=== PATIENT | female | born 1945 | race Caucasian/White ===

== ENCOUNTER → 2016-08-06 | Outpatient (CLI) | payer OTHER ==
[~2016-08-06] MED LIST: AMLO-110 PO; LEVO50TA PO
--- NOTE | 2016-08-06 16:41 | MAMMOGRAPHY REPORT ---
BILATERAL DIGITAL SCREENING MAMMOGRAM WITH CAD: 08/06/2016 CLINICAL HISTORY: Routine screening. Patient has no complaints. TECHNIQUE: Bilateral CC and MLO views were obtained. Current study was also evaluated with a Comput er Aided Detection (CAD) system. COMPARISON: Comparison is made to exams dated: 08/04/2015 mammogram, 08/02/2014 mammogram, 07/30/2013 mammogram, 07/29/2012 mammogram, 07/31/2010 mammogram - [facility], and 03/11/2008. BREAST COMPOSITION: The tissue of both breasts is heterogeneously dense, which may obscure small ma sses. FINDINGS: There are mild vascular calcifications in the breasts. The parenchymal pattern is unchang ed. No developing mass, architectural distortion or cluster of suspicious microcalcifications is see n in either breast. IMPRESSION: ACR BI-RADS CATEGORY 2: BENIGN There is no mammographic evidence of malignancy. A 1 year screening mammogram is recommended. The p atient will receive written notification of the results. Approximately 10% of breast cancers are not detected with mammography. A negative mammographic repor t should not delay biopsy if a clinically suggestive mass is present. Adelaida Monet M.D. ay/:08/06/2016 15:43:50 Ict Sales Assistant: Marybeth LAMBERT(Shukri)(Margarito)(BD), [facility] letter sent: Normal 1/2 BI-RADS Code: ACR BI-RADS Category 2: Benign
== END | disposition home or self-care (01) ==
LOC: C.MAMM 08:42
PROVIDERS: ATTEND Internal Medicine
DX: Z12.31 Encounter for screening mammogram for malignant neoplasm of breast (principal)

== ENCOUNTER → 2017-05-02 | Day surgery (SDC) | payer OTHER ==
[2017-04-18 08:06] VITALS: Ht 160 cm; Wt 65.9 kg
[~2017-05-02] VITALS: Ht 160 cm; Wt 65.9 kg
[~2017-05-02] MED LIST changes: +LIDOCAINE HCL 2% 2 ML VIAL (20MG/ML) ONE; +MULT-190 PO; +OMEG10007 PO; +POLYSOL4 OPB; +PROPOFOL IV EMULSION 10 MG/ML 20 ML VIAL IV ONE; +SODIUM CHLORIDE 0.9% 500ML 500 ML IV ONE
--- NOTE | 2017-05-02 08:38 | Endo History and Physical ---
History & Physical Date of Service: May 02, 2017. Chief Complaint: Family history of colon cancer (Brother) Referring Physician: Dr. Rico Fine History of Present Illness 71 yo CF who presents for colonoscopy secondary to family history of colon cancer (Brother). Past Surgical History Hx Cardiac Surgery: No Hx Internal Defibrillator: No Hx Pacemaker: No Hx Abdominal Surgery: Yes (PARTIAL HYSTER) Hx Post-Op Nausea and Vomiting: No Hx Cancer Surgery: No Hx Thoracic Surgery: No Hx Orthopedic: No Hx Urinary Tract Surgery: No Family History Colon CA Social History Smoking Status: Former Smoker Hx Substance Use: No Hx Alcohol Use: No Allergies Coded Allergies: Alendronate (Verified Allergy, Unknown, TACHYCARDIA, 04/18/17) Current Medications Reported Home Medications Medications Dose Route/Sig Max Daily Dose Days Date Category [place]-3 (Fish Oil) 1 Ea Cap 1 Cap PO QAM 04/18/17 Reported Systane (Polyethylene Glycol-Propylene) 1 Laura Laura 1 Drops OPB QID PRN 04/18/17 Reported Ocuvite Preservision (Multivitamins/Minerals) 1 Tab Tab 1 Tab PO BID 04/18/17 Reported Synthroid (Levothyroxine Sodium) 50 Mcg Tab 50 Mcg PO QAM 12/07/14 Reported Norvasc (Amlodipine Besylate) 5 Mg Tab 5 Mg PO NOON 12/07/14 Reported Vital Signs Weight (Kilograms): 65.91 Height (Feet): 5 Height (Inches): 3 Date Time Temp Pulse Resp B/P (MAP) Pulse Ox O2 Delivery O2 Flow Rate FiO2 05/02/17 08:15 36.7 90 18 149/81 (103) 99 Room Air Physical Exam General Appearance: WD/WN, no apparent distress Respiratory/Chest: Auscultation: breath sounds normal Cardiovascular: Heart Auscultation: RRR Abdomen: Bowel Sounds: normal Inspection & Palpation: soft, non-distended, no tenderness, guarding & rebound Assessment and Plan Assessment: 71 yo CF who presents for colonoscopy secondary to family history of colon cancer (Brother). Plan: Proceed with colonoscopy.
--- NOTE | 2017-05-02 09:19 | Discharge Instructions ---
Endoscopy Patient Instructions Date / Procedure(s) Performed May 02, 2017. Colonoscopy Allergy Information Coded Allergies: Alendronate (Verified Allergy, Unknown, TACHYCARDIA, 04/18/17) Discharge Date / Findings May 02, 2017. Rectal polyp Internal hemorrhoids Medication Instructions OK to resume all medications today as prescribed Reported Home Medications Medications Dose Route/Sig Max Daily Dose Days Date Category [place]-3 (Fish Oil) 1 Ea Cap 1 Cap PO QAM 04/18/17 Reported Systane (Polyethylene Glycol-Propylene) 1 Laura Laura 1 Drops OPB QID PRN 04/18/17 Reported Ocuvite Preservision (Multivitamins/Minerals) 1 Tab Tab 1 Tab PO BID 04/18/17 Reported Synthroid (Levothyroxine Sodium) 50 Mcg Tab 50 Mcg PO QAM 12/07/14 Reported Norvasc (Amlodipine Besylate) 5 Mg Tab 5 Mg PO NOON 12/07/14 Reported Provider Instructions Activity Restrictions - No exercising or heavy lifting for 24 hours. - Do not drink alcohol the day of the procedure. - Do not drive a car or operate machinery until the day after the procedure. - Do not make any important decisions or sign important papers in 24 hours after the procedure. Following Day: - Return to full activity which may include returning to work/school. Diet Start your diet with liquids and light foods (jello, soup, juice, toast). Then eat your usual diet if not nauseated. Treatment For Common After Affects For mild abdominal pain, bloating, or excessive gas: - Rest - Eat lightly - Lie on right side Follow-Up Information Follow-up with Dr. Rico Fine as scheduled Anesthesia Information What You Should Know You have had a procedure that required some medicine to reduce anxiety and discomfort. This treatment is called moderate sedation. After receiving the treatment, you may be sleepy, but you will be able to breathe on your own. The effects of the treatment may last for several hours. Follow these instructions along with Activity/Diet recommendations noted above: * Do NOT do anything where dizziness or clumsiness would be dangerous. * Rest quietly at home today, then you can be up and about tomorrow. * Have a responsible person stay with you the rest of today. * You may have had an I.V. today. If so, you may take the dressing off later today. Recommendations Call your doctor if: * Trouble breathing * Continuous vomiting for more than 24 hours * Temperature above 101 degrees * Severe abdominal pain or bloating * Pain not relieved by pain medicine ordered * There is increased drainage or redness from any incision * A large amount of rectal bleeding greater than 2-3 tablespoons. (If you had a polyp/s removed or have hemorrhoids, a small amount of blood - from the rectum is to be expected.) * You have any unanswered questions or concerns. IN THE EVENT OF A SERIOUS EMERGENCY, GO TO THE NEAREST EMERGENCY ROOM Your discharge instructions were prepared by provider Raj Trejo. Patient Instructions Signature Page Lola Weight Patient (or Guardian) Signature/Date: I have read and understand the instructions given to me by my caregivers. Caregiver/RN/Doctor Signature/Date: The above-named patient and/or guardian has received patient instructions on this date. + Original Patient Signature Page (only) stays with chart. Please make copy for patient.
--- NOTE | 2017-05-02 09:40 | Anesthesiology Progress Note ---
Anesthesia Post Op Note Date & Time May 02, 2017 at 09:40 Vital Signs Pain Intensity: 1 Vital Signs Past 12 Hours Date Time Temp Pulse Resp B/P (MAP) Pulse Ox O2 Delivery O2 Flow Rate FiO2 05/02/17 09:25 76 16 108/62 (77) 98 Room Air 05/02/17 08:15 36.7 90 18 149/81 (103) 99 Room Air Notes Mental Status: alert / awake / arousable, participated in evaluation Pt Amnestic to Procedure: Yes Nausea / Vomiting: adequately controlled Pain: adequately controlled Airway Patency, RR, SpO2: stable & adequate BP & HR: stable & adequate Hydration State: stable & adequate Anesthetic Complications: no major complications apparent
[2017-05-02 10:10] VITALS: BP 126/79; PULSE 78; O2SAT 99
--- NOTE | 2017-05-02 11:08 | GI REPORT ---
Procedure Date: 05/02/2017 8:37 AM Procedure: Colonoscopy Indications: Family history of colon cancer in a first-degree relative Medicines: Monitored Anesthesia Care Complications: No immediate complications. Estimated Blood Loss: Estimated blood loss: none. Procedure: Pre-Anesthesia Assessment: - Prior to the procedure, a History and Physical was performed, and patient medications and allergies were reviewed. The patient's tolerance of previous anesthesia was also reviewed. The risks and benefits of the procedure and the sedation options and risks were discussed with the patient. All questions were answered, and informed consent was obtained. Prior Anticoagulants: The patient has taken no previous anticoagulant or antiplatelet agents. ASA Grade Assessment: II - A patient with mild systemic disease. After reviewing the risks and benefits, the patient was deemed in satisfactory condition to undergo the procedure. After I obtained informed consent, the scope was passed under direct vision. Throughout the procedure, the patient's blood pressure, pulse, and oxygen saturations were monitored continuously. The scope was introduced through the anus and advanced to the cecum, identified by appendiceal orifice and ileocecal valve. The colonoscopy was performed without difficulty. The patient tolerated the procedure well. The quality of the bowel preparation was good. The ileocecal valve, appendiceal orifice, and rectum were photographed. Findings: The perianal and digital rectal examinations were normal. A 5 mm polyp was found in the rectum. The polyp was sessile. The polyp was removed with a hot snare. Resection and retrieval were complete. Non-bleeding internal hemorrhoids were found during retroflexion. The hemorrhoids were small. Impression: - One 5 mm polyp in the rectum, removed with a hot snare. Resected and retrieved. - Non-bleeding internal hemorrhoids. Recommendation: - Resume previous diet. - Continue present medications. - Repeat colonoscopy for surveillance based on pathology results. - Return to primary care physician as previously scheduled. Raj Trjeo DO 05/02/2017 9:17:46 AM This report has been signed electronically. Note Initiated On: 05/02/2017 8:37 AM I attest to the content of the Intraoperative Record and orders documented therein, exceptions below
== END | disposition home or self-care (01) ==
LOC: C.GI 07:48
PROVIDERS: ATTEND Internal Medicine
DX: Z12.11 Encounter for screening for malignant neoplasm of colon (principal); Z80.0 Family history of malignant neoplasm of digestive organs; D12.8 Benign neoplasm of rectum; K64.8 Other hemorrhoids; Z87.891 Personal history of nicotine dependence; Z88.8 Allergy status to other drugs, medicaments and biological substances

== ENCOUNTER → 2017-05-07 | Outpatient (CLI) | payer OTHER ==
[~2017-05-07] MED LIST changes: -LIDOCAINE HCL 2% 2 ML VIAL (20MG/ML) ONE; -PROPOFOL IV EMULSION 10 MG/ML 20 ML VIAL IV ONE; -SODIUM CHLORIDE 0.9% 500ML 500 ML IV ONE
[2017-05-07 10:09] LABS: BASO % 0.3 %; BASO ABS # 0.02 K/uL (0-0.2); EOS % 0.8 %; EOS ABS # 0.05 K/uL (0-0.5); HEMATOCRIT 40.5 % (37-47); HEMOGLOBIN 12.6 g/dL (12.0-16.0); IG# 0.03 K/uL (0.00-0.02); LYMPH % 20.2 %; LYMPH ABS # 1.23 K/uL (1.2-3.4); MEAN CELL VOLUME 87.7 fL (80-100); MEAN CORPUSCULAR HEMOGLOBIN 27.3 pg (25-34); MEAN CORPUSCULAR HGB CONC 31.1 g/dl (32-36); MEAN PLATELET VOLUME 12.1 fL (7.4-10.4); MONO % 8.9 %; MONO ABS # 0.54 K/uL (0.11-0.59); NEUT % 69.3 %; NEUT ABS # 4.22 K/uL (1.4-6.5); PLATELET COUNT 324 K/uL (130-400); RED CELL DISTRIBUTION WIDTH CV 13.9 % (11.5-14.5); RED CELL DISTRIBUTION WIDTH SD 44.4 fL (36.4-46.3); WHITE BLOOD COUNT 6.09 K/uL (4.8-10.8)
[2017-05-07 10:46] LABS: ALBUMIN 3.5 gm/dl (3.4-5.0); ALT/SGPT 22 U/L (12-78); BLOOD UREA NITROGEN 14 mg/dl (7-18); CALCIUM 9.3 mg/dl (8.5-10.1); CARBON DIOXIDE 30 mmol/L (21-32); CREATININE 0.91 mg/dl (0.60-1.20); GLUCOSE 98 mg/dl (70-99); POTASSIUM 3.9 mmol/L (3.5-5.1); SODIUM 140 mmol/L (136-145)
[2017-05-07 10:57] LABS: ALKALINE PHOSPHATASE 108 U/L (45-117); AST/SGOT 14 U/L (15-37); CHOLESTEROL 133 mg/dl (0-200); LDL CHOLESTEROL CALCULATED 73 mg/dl; TOTAL PROTEIN 8.2 gm/dl (6.4-8.2)
== END ==
LOC: C.LAB 08:44
PROVIDERS: ATTEND Internal Medicine

== ENCOUNTER 2023-01-15 12:12 | Inpatient (IN) ==
[2023-01-15 13:37] LABS: Basophils # (auto) 0.04 K/uL (0.00-0.20); Basophils % (auto) 0.9 %; Eosinophils # (auto) 0.11 K/uL (0.00-0.50); Eosinophils % (auto) 2.6 %; Hemoglobin 12.7 g/dl (12.0-16.0); Immature Granulocytes # (auto) 0.03 K/uL (0.01-0.20); Immature Granulocytes % (auto) 0.7 %; Lymphocytes # (auto) 1.15 K/uL (1.20-3.40); Lymphocytes % (auto) 27.1 %; Mean Corpuscular Hemoglobin 29.1 pg (25.0-34.0); Mean Corpuscular Hgb Conc 32.6 g/dL (32.0-36.0); Mean Corpuscular Volume 89.2 fL (80.0-100.0); Mean Platelet Volume 12.5 fL (9.4-12.4); Monocytes % (auto) 7.1 %; Neutrophils # (auto) 2.61 K/uL (1.40-6.50); Neutrophils % (auto) 61.6 %; Platelet Count 260 K/uL (130-400); RDW Standard Deviation 42.5 fL (36.4-46.3); Red Blood Count 4.37 M/uL (4.20-5.40); White Blood Count 4.24 K/ul (4.8-10.8)
[2023-01-15 13:52] LABS: Albumin Globulin Ratio 1.3 (0.9-2); Albumin Level 4.2 gm/dl (3.4-5.0); BUN Creatinine Ratio 18.6 (10-20); Bilirubin,Total 0.4 mg/dl (0.2-1.0); Calcium 9.5 mg/dl (8.6-10.3); Creatinine Clr Calc Pharmacy 39.9 ml/min; Est GFR (African American) 70.4 ml/min; Est GFR (Non-African American) 60.7 ml/min; Globulin 3.3 gm/dl (2.5-4.0); Potassium 3.8 mmol/L (3.5-5.1); Total Protein 7.5 gm/dl (6.0-8.3)
--- NOTE | 2023-01-15 15:14 | Emergency Department Note ---
Impression & Plan Abdominal pain, Ileus, Gallstones ED Provider Note NAME: NAHOMY Pimentel WEIGHT AGE: 77 SEX: F : 1945 ARRIVES VIA: Walk-In INFORMANT: Patient, ED PROVIDER(S): Terry Solomon MD CHIEF COMPLAINT: MEDICAL DECISION MAKING: Patient presents due to concern for abdominal pain. IV was established and blood work was obtained. CT abdomen pelvis also performed. Patient's blood work shows a normal white count H&H and platelet count with normal kidney function and electrolytes. Urinalysis without evidence of obvious blood or infection. CT abdomen pelvis did show likely ileocecal-itis with a dilated fluid-filled appendix but no signs additionally consistent with appendicitis. There was concern for possible cholecystitis. I did reevaluate the patient the patient does have some right upper quadrant pain. I did order a right upper quadrant ultrasound after discussing the patient's case with on-call general surgeon Dr. Cheng. The patient was signed out to Dr. Arreaga pending the results of the right upper quadrant ultrasound and subsequent disposition. Discussion w/ other healthcare providers: Dr. Cheng general surgery Prior /Outside records reviewed: Reviewed a colonoscopy report from Dr. Trejo from January 08, 2023. Patient had normal perianal and digital rectal exams. 6 mm polyp was found in the ascending colon sessile and was removed with cold snare. Nonbleeding internal hemorrhoids also noted. Differential diagnosis: Appendicitis, ovarian cyst, ovarian torsion, ectopic , TOA, PID, diverticulitis, UTI, obstructioninflammatory bowel disease, renal colic, PUD, pancreatitis, biliary pathology, hernia, volvulus, constipation, as well as other pathologies were considered. Diagnostics, as interpreted by me: ECG: None Cardiac monitoring: An order was placed for continuous cardiac monitoring. The monitor shows a rate of 75 with sinus rhythm. Patient was placed on pulse oximetry Medical decision rules: None Imaging studies: I informally interpreted the patient's CT abdomen pelvis which does not show obvious pneumoperitoneum. With formal report to follow. HPI: Patient presents due to concern for abdominal pain primarily in the lower abdomen. The patient is a nausea but no vomiting. The patient has had an episode of diarrhea and thought that maybe she had a fever within the last several days. The patient did have a colonoscopy last week that was completed by Dr. Trejo which was routine at that time the patient believes that she did have a polypectomy. No blood in the stool. Patient denies any falls or trauma. Patient states that she had called the office today and was referred here for further evaluation and treatment PAST MEDICAL HISTORY: See Below PAST SURGICAL HISTORY: See Below SOCIAL HISTORY: See Below HOME MEDICATIONS: See Below ALLERGIES: See Below VITALS: See Below PHYSICAL EXAMINATION: GENERAL: NAD, non-toxic. EYE EXAM: Normal conjunctiva. PERRL, no anisocoria and EOM's grossly intact w/o pain. OROPHARYNX: Moist mucus membranes, grossly normal dentition. NECK: Supple, no nuchal rigidity, no adenopathy, non-tender. No signs of meningismus. FROM of the neck with good chin to chest and neck extension. No stridor. LUNGS: Clear to auscultation. Normal chest wall mechanics. HEART: NSR, no MRG. ABDOMEN: Abdomen soft, lower abdominal pain with mild focality in the right lower quadrant no masses, no rebound or guarding. BACK: No CVA TTP. SKIN: No rashes and no bruising. UPPER EXTREMITIES: Upper extremities are grossly normal. LOWER EXTREMITIES: Grossly normal, no edema. NEURO EXAM: A&O x3, cranial nerves II-XII grossly intact, normal speech, moves all 4 extremities. Past Med/Surg History Medical History Osteoarthritis Urinary incontinence TMJ (temporomandibular joint disorder) History of migraine Osteoporosis, unspecified Solitary thyroid nodule Osteopenia Hypothyroidism Hypertension Surgical History History of hysterectomy History of colonoscopy H/O esophagogastroduodenoscopy S/P correction of deviated nasal septum Family History Brother COPD (chronic obstructive pulmonary disease) Colorectal cancer Father Lung cancer Mother Diabetes Hypertension Dyslipidemia Sister Breast cancer Denies family history of Ovarian cancer Prostate cancer Myocardial infarction Social History Smoking Status: Never smoker Second Hand Exposure: No; Do You Dip or Chew Tobacco: No; Hx Alcohol Use: No Hx Substance Use: No Preferred Language: Welsh Communication Ability: Effective Visual Impairment: Limited Hearing Ability: Normal Educational Technologist Required: No Beliefs That Will Affect Care: None marital status: Current Living Situation: Alone current occupational status: retired How many Children do You have: 2 Feels Safe at Home: Yes Childhood Exposure to Second-Hand Smoke: Yes caffeine: Yes Dental Care, Regularly: No Physical Activity Frequency: 1-2 Times per Week Seatbelt Use: always Sunscreen Use: No Assistive Devices: None Allergies Allergies Allergy/AdvReac Type Severity Reaction Status Date / Time alendronate sodium Allergy Unknown TACHYCARDIA Verified 01/16/23 06:59 Home Meds Home Medications Medication Instructions Recorded Confirmed cholecalciferol (vitamin D3) 50 2,000 units PO QDL 01/07/23 01/07/23 mcg (2,000 unit) tablet levothyroxine 75 mcg tablet 75 mcg PO QAM 01/07/23 01/08/23 amlodipine 5 mg tablet 5 mg PO QAM 01/15/23 01/15/23 risedronate 150 mg tablet 150 mg PO .MONTHLY 01/15/23 01/15/23 Previous Rx's Medication Instructions Recorded cephalexin 500 mg capsule 500 mg PO BID 4 days #8 caps 01/17/23 metronidazole 500 mg tablet 500 mg PO Q8H 4 days #12 tabs 01/17/23 Results & Data (ED) Vital Signs Vital Signs - 24 hr 01/15/23 12:27 Temperature 36.2 C L Temperature Source Temporal Artery Scan Pulse Rate 68 Respiratory Rate 18 Respiratory Effort / Characteristics Non-Labored Spontaneous Respiratory Depth Normal Respiratory Pattern Regular Blood Pressure 166/86 H Blood Pressure Mean 112 Pulse Oximetry 98 Oxygen Delivery Method Room Air Sepsis Recent Fever Within 48 Hours Yes Sepsis New/Unexplained Change in Mental Status N/A Sepsis Action Taken by Nursing No Action Required Home Medications Current Medication List: was personally reviewed by me Laboratory Data Attestation: I reviewed the patient's lab results. 01/17/23 07:23 01/17/23 07:23 Lab Results 01/15/23 01/15/23 Range/Units 12:40 15:46 WBC 4.24 L (4.8-10.8) K/ul RBC 4.37 (4.20-5.40) M/uL Hgb 12.7 (12.0-16.0) g/dl Hct 39.0 (37.0-47.0) % MCV 89.2 (80.0-100.0) fL MCH 29.1 (25.0-34.0) pg MCHC 32.6 (32.0-36.0) g/dL RDW Std Deviation 42.5 (36.4-46.3) fL RDW Coeff of Tho 13.0 (11.5-14.5) % Plt Count 260 (130-400) K/uL MPV 12.5 H (9.4-12.4) fL Immature Gran % (Auto) 0.7 % Neut % (Auto) 61.6 % Lymph % (Auto) 27.1 % [place] % (Auto) 7.1 % Eos % (Auto) 2.6 % Baso % (Auto) 0.9 % Neut # (Auto) 2.61 (1.40-6.50) K/uL Lymph # (Auto) 1.15 L (1.20-3.40) K/uL [place] # (Auto) 0.30 (0.11-0.59) K/uL Eos # (Auto) 0.11 (0.00-0.50) K/uL Baso # (Auto) 0.04 (0.00-0.20) K/uL Immature Gran # (Auto) 0.03 (0.01-0.20) K/uL Sodium 140 (136-145) mmol/L Potassium 3.8 (3.5-5.1) mmol/L Chloride 105 (98-107) mmol/L Carbon Dioxide 28 (21-32) mmol/L Anion Gap 7 (3-11) BUN 16 (6-23) mg/dl Creatinine 0.86 (0.6-1.2) mg/dl Est Cr Clr Drug Dosing 39.9 ml/min Est GFR ( Amer) 70.4 ml/min Est GFR (Non-Af Amer) 60.7 ml/min BUN/Creatinine Ratio 18.6 (10-20) Glucose 105 H (70-99(Fasting)) mg/dl Calcium 9.5 (8.6-10.3) mg/dl Total Bilirubin 0.4 (0.2-1.0) mg/dl AST 19 (13-39) U/L ALT 15 (7-52) U/L Alkaline Phosphatase 58 (34-104) U/L Total Protein 7.5 (6.0-8.3) gm/dl Albumin 4.2 (3.4-5.0) gm/dl Globulin 3.3 (2.5-4.0) gm/dl Albumin/Globulin Ratio 1.3 (0.9-2) Lipase 29 (11-82) U/L Urine Color Yellow Urine Appearance Clear (Clear) Urine pH 6.5 (4.5-7.5) Ur Specific [place] 1.011 (1.000-1.030) Urine Protein Negative (Negative) Urine Glucose (UA) Negative (Negative) Urine Ketones Trace H (Negative) Urine Blood Negative (Negative) Urine Nitrite Negative (Negative) Urine Bilirubin Negative (Negative) Urine Urobilinogen Negative (Negative) Ur Leukocyte Esterase Negative (Negative) Administered Medications Ceftriaxone Sodium 2,000 mg/ (Dextrose) 50 mls @ 100 mls/hr IV Q24H MIKE; Protocol Stop: 01/26/23 20:59 Last Infusion: 01/16/23 22:01 Dose: Infused Documented By: Admin: 01/16/23 21:23 Dose: 100 mls/hr Documented By: XIOMARA Metronidazole (Flagyl) 500 mg in 100 mls @ 100 mls/hr IV Q8H MIKE; Protocol Stop: 01/26/23 05:59 Last Infusion: 01/17/23 09:49 Dose: Infused Documented By: Admin: 01/17/23 08:39 Dose: 100 mls/hr Documented By: Infusion: 01/17/23 00:24 Dose: Infused Documented By: Admin: 01/16/23 23:17 Dose: 100 mls/hr Documented By: Infusion: 01/16/23 17:46 Dose: Infused Documented By: Admin: 01/16/23 16:45 Dose: 100 mls/hr Documented By: Infusion: 01/16/23 09:46 Dose: Infused Documented By: Admin: 01/16/23 08:02 Dose: 100 mls/hr Documented By: RENETTA Co-signed By: JINNY Acetaminophen (Ofirmev) 1,000 mg in 100 mls @ 400 mls/hr IV Q8H PRN PRN Reason: Headache or Pain Stop: 01/19/23 19:35 Last Infusion: 01/17/23 06:17 Dose: Infused Documented By: Admin: 01/17/23 05:48 Dose: 400 mls/hr Documented By: XIOMARA Levothyroxine Sodium (Levothyroxine Sodium 75 Mcg Tablet) 75 mcg PO DAILYBB MIKE Stop: 02/15/23 06:29 Last Admin: 01/17/23 05:41 Dose: 75 mcg Documented By: Admin: 01/16/23 05:17 Dose: Not Given Documented By: JUVENAL Discontinued Medications Ceftriaxone Sodium 2,000 mg/ (Dextrose) 50 mls @ 100 mls/hr IV NOW STA; Protocol Stop: 01/15/23 20:11 Last Infusion: 01/15/23 23:03 Dose: Infused Documented By: Admin: 01/15/23 20:47 Dose: 100 mls/hr Documented By: ROSENDO Metronidazole (Flagyl) 500 mg in 100 mls @ 100 mls/hr IV NOW STA; Protocol Stop: 01/15/23 22:09 Last Infusion: 01/15/23 23:34 Dose: Infused Documented By: Infusion: 01/15/23 23:09 Dose: 100 mls/hr Documented By: Admin: 01/15/23 21:40 Dose: 100 mls/hr Documented By: ROSENDO Parenteral Electrolytes (Plasma-Lyte A Ph 7.4) 1,000 mls @ 100 mls/hr IV .Q10H MIKE Stop: 01/16/23 17:14 Last Infusion: 01/16/23 17:46 Dose: Infused Documented By: Admin: 01/16/23 08:01 Dose: 100 mls/hr Documented By: RENETTA Co-signed By: JINNY Infusion: 01/16/23 07:40 Dose: Infused Documented By: RENETTA Co-signed By: JINNY Admin: 01/15/23 21:40 Dose: 100 mls/hr Documented By: ROSENDO Acetaminophen (Ofirmev) 1,000 mg in 100 mls @ 400 mls/hr IV NOW STA Stop: 01/15/23 21:25 Last Infusion: 01/15/23 23:01 Dose: Infused Documented By: Admin: 01/15/23 21:41 Dose: 400 mls/hr Documented By: ROSENDO Sincalide 1.2 mcg/ Sodium (Chloride) 101.2 mls @ 200 mls/hr IV ONE ONE Stop: 01/16/23 14:45 Last Infusion: 01/16/23 16:55 Dose: Infused Documented By: Admin: 01/16/23 15:32 Dose: 200 mls/hr Documented By: MUSTAPHA Ioversol (Optiray 320 100ml) 93 ml IV ONCE ONE Stop: 01/15/23 15:55 Last Admin: 01/15/23 15:54 Dose: 93 ml Documented By: KSF Discharge Plan Visit Data Chief Complaint: GI Assessment Stated Complaint: CT SCAN REQUESTED, ABDOMINAL PAIN, DIAREAH ED Provider: Lesly Arreaga Discharge Problem: Abdominal pain, Ileus, Gallstones Patient Disposition: Admitted As Inpatient Discharge Instructions Interventions: ED Discharge Assessment Last Done: 01/15/23 21:55 Discharge Problem: Abdominal pain Qualifiers: Abdominal location: unspecified location Qualified Code(s): R10.9 - Unspecified abdominal pain
[2023-01-15] MEDS ORDERED: OPTIRAY 320 100ml IV ONE (15:54)
--- NOTE | 2023-01-15 16:33 | CT Scan Report ---
CT SCAN OF THE ABDOMEN AND PELVIS WITH IV CONTRAST CLINICAL HISTORY: Generalized abdominal pain. Recent colonoscopy. COMPARISON STUDY: No priors. TECHNIQUE: Following the IV administration of 93 cc of Optiray 320, CT scan of the abdomen and pelvi s is performed from the lung bases to the proximal femora. Images are reviewed in the axial, sagittal , and coronal planes. IV contrast was administered without complication. A dose lowering technique wa s utilized adhering to the principles of ALARA. CT DOSE: 624.68 mGy.cm FINDINGS: Lung bases: The heart is normal in size and without pericardial effusion. The lung bases are clear. Liver: The contrast-enhanced liver is normal in size, contour, and attenuation. There is no intrahepa tic biliary ductal dilatation. The hepatic veins and portal veins are patent. Gallbladder: There are numerous gallstones. Several stones are seen in the region of the gallbladder neck. The gallbladder wall appears mildly thickened and hypermetabolic with pericholecystic infiltrat ion Spleen: Normal in size and attenuation. Pancreas: Mild atrophic and grossly unremarkable. Adrenal glands: Unremarkable. Kidneys: The contrast enhanced kidneys are normal in size and without hydronephrosis. The kidneys enh ance symmetrically. Abdominal vasculature: The abdominal aorta is normal in course and caliber noting moderate atheroscle rotic calcification. Bowel: There are scattered colonic diverticula without CT evidence of acute diverticulitis. No bowel obstruction is seen there is significant wall thickening and edema with mucosal hyperemia involving t he cecum and proximal ascending colon. There are also thick-walled and hyperemic loops of distal/term inal ileum in the right lower quadrant seen on image number #2 in 25. There is trace interloop fluid. The more proximal small bowel loops are mildly distended and fluid-filled suggestive of ileus. The m esenteric vessels are widely patent. The appendix is mildly dilated and fluid-filled measuring up to 8 mm as seen on axial image #220. There is no significant surrounding inflammation. Peritoneum: No intraperitoneal free air is identified. There is a small volume of pelvic ascites. The re is a fat-containing umbilical hernia. Lymphadenopathy: None. Pelvic viscera: The the bladder wall is diffusely thickened. The uterus is surgically absent. No adne xal lesion is seen. Skeletal structures: The skeletal structures are osteopenic. There is mild lumbosacral spondylosis. N o lytic or blastic lesions are seen. IMPRESSION: 1. Findings a consistent with a nonspecific ileocecum right as as above. This is likely an infectious or inflammatory basis, and clinical correlation will be essential. 2. There is associated interloop fluid, surrounding inflammation, and a small volume of pelvic ascite s. No definite peritoneal free air is seen. 3. The mesenteric vessels appear widely patent. 4. The upstream small bowel loops are mildly distended and fluid-filled suggestive of ileus. There is no evidence of high-grade obstruction. 5. Cholelithiasis with findings suspicious for acute cholecystitis. Clinical and laboratory correlati on will be required. A right upper quadrant ultrasound could be considered for further assessment. 6. The bladder wall appears diffusely thickened. Correlate with clinical findings and urinalysis. 7. Additional findings as above. ACT 112: Negative or not required by law. Electronically signed by: Wil Quiroz M.D. 01/15/2023 4:31 PM
[2023-01-15 16:39] LABS: Appearance Urine Clear (Clear); Bilirubin Urine Negative (Negative); Blood Urine Negative (Negative); Color Urine Yellow; Glucose Urine UA Negative (Negative); Ketones Urine Trace (Negative); Leukocyte Esterase Urine Negative (Negative); Nitrite Urine Negative (Negative); Protein Urine Negative (Negative); Specific Gravity Urine 1.011 (1.000-1.030); Urobilinogen Urine Negative (Negative); pH Urine 6.5 (4.5-7.5)
--- NOTE | 2023-01-15 18:28 | Ultrasound Report ---
ABDOMINAL ULTRASOUND, RIGHT UPPER QUADRANT HISTORY: Abnormal CT examination. Right upper quadrant pain.. COMPARISON: Abdomen and pelvis CT 01/15/2023. FINDINGS: Pancreas: The pancreatic tail is obscured by overlying bowel gas. The remaining portions of the pancr eas are within normal limits. Liver: Unremarkable. Gallbladder: The gallbladder is completely filled with stones. There is mild gallbladder wall thicken ing measuring up to 3.2 mm. The technologist reported patient tenderness while scanning over the gall bladder suggestive of a positive sonographic Simmons sign. CBD: 4 mm. Right kidney: No hydronephrosis. IMPRESSION: The gallbladder is completely filled with stones. There is mild gallbladder wall thickening measuring up to 3.2 mm. The technologist reported patient tenderness while scanning over the gallbladder sugge stive of a positive sonographic Simmons sign. Therefore, these findings are concerning for a developin g acute cholecystitis. Surgical consultation and/or nuclear medicine HIDA scan can be used for confir mation. ACT 112: Negative or not required by law. Electronically signed by: Andre Xei M.D. 01/15/2023 6:25 PM
[2023-01-15] MEDS ORDERED: cefTRIAXone SODIUM 2,000 MG in DEXTROSE 5 % MINI-B 50 ML IV STA (19:42)
--- NOTE | 2023-01-15 19:48 | History & Physical Report ---
Date of Service January 15, 2023 Assessment & Plan (1) Abdominal pain: Plan: -Admit to med/surge -Currently stable, with pain controlled, and non-toxic appearing -Patient has been experiencing progressive abdominal pain, distention/gas, and loose bowel movements -Patient has been afebrile, WBC WNL, but CT results show ileus with findings consistent with ileocecitis and significant cholelithiasis -Gallbladder US was read as "The gallbladder is completely filled with stones. There is mild gallbladder wall thickening measuring up to 3.2 mm.". -General surgery is following, appreciate their assistance, they agree with continue ABX and IV fluids, we will get a HIDA scan tomorrow for further evaluation as it is equivocal of the etiology of her symptoms at this time -Given a dose of Ceftriaxone in the ED, will continue and add flagyl for anaerobic coverage -Pain control with tylenol and morphine -Will continue IV fluids with Normosol at 100 mL/hr x 2 bags -Hold SQ anticoagulation in case of OR tomorrow; BL SCD's for now -NPO -AM CBC, CMP, Mag, PT/INR (2) Cholelithiasis: Plan: -General surgery is following -Follow HIDA scan tomorrow, already ordered -Continue Ceftriaxone/Flagyl and IV fluids -Continue NPO status at this time (3) Regional ileocolitis: Plan: -Continue IV fluids and antibiotics (4) HTN (hypertension): Plan: -Stable -Will hold amlodipine for now to prevent hypotension (5) Hypothyroidism: Plan: -Continue levothyroxine Plan The patient was seen with and discussed with Dr. Moore at the time of the a dmission History of Present Illness Chief Complaint: Abdominal pain, diarrhea, recent colonoscopy Primary Care Provider: DO Hernan Toroda is a 77 year old female with a PMH significant for HTN, hypothyroidism, and osteoporosis who presented to the [facility] ED on 01/15 at the recommendation of GI for abdominal pain, distention, and diarrhea. Per the ED, the patient had a colonoscopy approximately one week ago. GI recommended the patient go to the ED for further evaluation. She remained stable while in the ED. Labs including CBC, CMP, and UA were unremarkable. CT of the abd/pelvis with IV con was initially red as "1. Findings a consistent with a nonspecific ileocecum right as as above. This is likely an infectious or inflammatory basis, and clinical correlation will be essential. 2. There is associated interloop fluid, surrounding inflammation, and a small volume of pelvic ascites. No definite peritoneal free air is seen. 3. The mesenteric vessels appear widely patent. 4. The upstream small bowel loops are mildly distended and fluid-filled suggestive of ileus. There is no evidence of high-grade obstruction. 5. Cholelithiasis with findings suspicious for acute cholecystitis. Clinical and laboratory correlation will be required. A right upper quadrant ultrasound could be considered for further assessment. 6. The bladder wall appears diffusely thickened. Correlate with clinical findings and urinalysis. An addendum was later added stating "As an additional impression point, the appendix is dilated and fluid-filled. There is no significant stranding inflammation, and this is likely related to the ileocecitis. Acute appendicitis is considered much less likely. Clinical correlation will be essential.". Gallbladder US was read as "The gallbladder is completely filled with stones. There is mild gallbladder wall thickening measuring up to 3.2 mm. The technologist reported patient tenderness while scanning over the gallbladder suggestive of a positive sonographic Simmons sign. Therefore, these findings are concerning for a developing acute cholecystitis. Surgical consultation and/or nuclear medicine HIDA scan can be used for confirmation.". The ED contacted General Surgery who will see the patient but recommended medicine admission with Surgery following. Prior to admission the patient was given a dose of Ceftriaxone. At the time of the exam the patient was sitting in bed in no acute distress. She states that she had a routine colonoscopy with [facility] on 01/08. Per review of the report, Per review of the procedure report, A 6 mm polyp was found in the ascending colon, it was described as sessile. The procedure was described as unusually difficult due to restricted mobility of the colon. She states that she started to develop lower and right abdominal pain and increased abdominal distention/gas on 01/09. Her symptoms persisted despite using Gas-X, she did not have a BM until 01/10. She states that she had multiple episodes of loose, non- bloody stool over the weekend with continued abdominal discomfort. Because of this she has had very poor oral intake over the past 72 hours. She called her PCP and the GI clinic who recommended coming to the ED for further evaluation. She states that her symptoms are under control while at rest with exacerbation whenever she increased intraabdominal pressure. She denies recent fever, chest pain, SOB, hematemesis, dysuria, hematuria, melena, LE swelling, and recent trauma. She is a full code and wishes for her daughter to make medical decisions for her if she cannot make them herself. An addendum was added to the CT read: As an additional impression point, the appendix is dilated and fluid-filled. There is no significant stranding inflammation, and this is likely related to the ileocecitis. Acute appendicitis is considered much less likely. Clinical correlation will be essential. Please refer to Dr. Moore's attestation for any changes to the treatment plan Allergies Allergy/AdvReac Type Severity Reaction Status Date / Time alendronate sodium Allergy Unknown Verified 01/15/23 20:18 [From Fosamax] Home Medications Medication Instructions Recorded Confirmed Type amlodipine 5 mg tablet 5 mg PO QAM 01/15/23 01/15/23 History levothyroxine 75 mcg tablet 75 mcg PO QAM 01/15/23 01/15/23 History risedronate 150 mg tablet 150 mg PO .MONTHLY 01/15/23 01/15/23 History Past Med/Surg History Social History Smoking Status: Never smoker Preferred Language: Spanish Feels Safe at Home: Yes Review of Systems Review of Systems: All systems reviewed & are unremarkable except as noted in HPI & below Physical Exam Physical Exam: Physical Exam: General: In no acute distress, stated age, well-nourished, good hygiene, non- toxic appearing HEENT: Normocephalic, atraumatic, no scleral icterus, pupils around round, sy mmetrical, and reactive to light, moist mucus membranes, trachea midline, no thyromegaly Chest/Pulm: No respiratory distress, symmetrical chest expansion, clear breath sounds throughout Cardiac: RRR, no murmurs noted Abdomen: Negative for ascites and bruising, hypoactive bowel sounds, soft, tender to palpation in the BL lower abdominal rodriguez, as-well-as the RUQ with deep palpation, negative rebound tenderness Musculoskeletal: Symmetrical and without signs of acute trauma, upper and lower extremities with full ROM, no atrophy, spasticity, or flaccidity Extremities: Radial, dorsalis pedis, and posterior tibial pulses are intact and symmetrical, no edema noted in the BL LE's Skin: Warm, dry, no rashes , lesions, or scars noted Neuro: Alert and oriented to person, place, month, year, and president, no fo aster defects, no tremors noted Psych: No acute distress, calm and cooperative during the exam Results & Data Results & Data Vital Signs (Past 12 Hours) Vital Signs Temp Pulse Pulse Resp BP BP Pulse Ox 01/15/23 17:00 66 16 158/85 H 99 01/15/23 16:00 62 18 176/83 H 97 01/15/23 12:27 36.2 C L 68 18 166/86 H 98 O2 Del Method 01/15/23 17:00 Room Air 01/15/23 16:00 Room Air 01/15/23 12:27 Room Air Laboratory Results Abnormal lab results 01/15/23 01/15/23 01/15/23 Range/Units 12:40 12:40 15:46 WBC 4.24 L (4.8-10.8) K/ul MPV 12.5 H (9.4-12.4) fL Lymph # (Auto) 1.15 L (1.20-3.40) K/uL Glucose 105 H (70-99(Fasting)) mg/dl Urine Ketones Trace H (Negative) Diagnostic Findings Abdomen/Pelvis CT 01/15/23 15:11 CT SCAN OF THE ABDOMEN AND PELVIS WITH IV CONTRAST CLINICAL HISTORY: Generalized abdominal pain. Recent colonoscopy. COMPARISON STUDY: No priors. TECHNIQUE: Following the IV administration of 93 cc of Optiray 320, CT scan of the abdomen and pelvis is performed from the lung bases to the proximal femora. Images are reviewed in the axial, sagittal, and coronal planes. IV contrast was administered without complication. A dose lowering technique was utilized adhering to the principles of ALARA. CT DOSE: 624.68 mGy.cm FINDINGS: Lung bases: The heart is normal in size and without pericardial effusion. The lung bases are clear. Liver: The contrast-enhanced liver is normal in size, contour, and attenuation. There is no intrahepatic biliary ductal dilatation. The hepatic veins and portal veins are patent. Gallbladder: There are numerous gallstones. Several stones are seen in the region of the gallbladder neck. The gallbladder wall appears mildly thickened and hypermetabolic with pericholecystic infiltration Spleen: Normal in size and attenuation. Pancreas: Mild atrophic and grossly unremarkable. Adrenal glands: Unremarkable. Kidneys: The contrast enhanced kidneys are normal in size and without hydronephrosis. The kidneys enhance symmetrically. Abdominal vasculature: The abdominal aorta is normal in course and caliber noting moderate atherosclerotic calcification. Bowel: There are scattered colonic diverticula without CT evidence of acute diverticulitis. No bowel obstruction is seen there is significant wall thickening and edema with mucosal hyperemia involving the cecum and proximal ascending colon. There are also thick-walled and hyperemic loops of distal/terminal ileum in the right lower quadrant seen on image number #2 in 25. There is trace interloop fluid. The more proximal small bowel loops are mildly distended and fluid-filled suggestive of ileus. The mesenteric vessels are widely patent. The appendix is mildly dilated and fluid-filled measuring up to 8 mm as seen on axial image #220. There is no significant surrounding inflammation. Peritoneum: No intraperitoneal free air is identified. There is a small volume of pelvic ascites. There is a fat-containing umbilical hernia. Lymphadenopathy: None. Pelvic viscera: The the bladder wall is diffusely thickened. The uterus is surgically absent. No adnexal lesion is seen. Skeletal structures: The skeletal structures are osteopenic. There is mild lumbosacral spondylosis. No lytic or blastic lesions are seen. IMPRESSION: 1. Findings a consistent with a nonspecific ileocecum right as as above. This is likely an infectious or inflammatory basis, and clinical correlation will be essential. 2. There is associated interloop fluid, surrounding inflammation, and a small volume of pelvic ascites. No definite peritoneal free air is seen. 3. The mesenteric vessels appear widely patent. 4. The upstream small bowel loops are mildly distended and fluid-filled suggestive of ileus. There is no evidence of high-grade obstruction. 5. Cholelithiasis with findings suspicious for acute cholecystitis. Clinical and laboratory correlation will be required. A right upper quadrant ultrasound could be considered for further assessment. 6. The bladder wall appears diffusely thickened. Correlate with clinical findings and urinalysis. 7. Additional findings as above. ACT 112: Negative or not required by law. Electronically signed by: Wil Quiorz M.D. 01/15/2023 4:31 PM Gallbladder Ultrasound 01/15/23 17:16 ABDOMINAL ULTRASOUND, RIGHT UPPER QUADRANT HISTORY: Abnormal CT examination. Right upper quadrant pain.. COMPARISON: Abdomen and pelvis CT 01/15/2023. FINDINGS: Pancreas: The pancreatic tail is obscured by overlying bowel gas. The remaining portions of the pancreas are within normal limits. Liver: Unremarkable. Gallbladder: The gallbladder is completely filled with stones. There is mild gallbladder wall thickening measuring up to 3.2 mm. The technologist reported patient tenderness while scanning over the gallbladder suggestive of a positive sonographic Simmons sign. CBD: 4 mm. Right kidney: No hydronephrosis. IMPRESSION: The gallbladder is completely filled with stones. There is mild gallbladder wall thickening measuring up to 3.2 mm. The technologist reported patient tenderness while scanning over the gallbladder suggestive of a positive sonographic Simmons sign. Therefore, these findings are concerning for a developing acute cholecystitis. Surgical consultation and/or nuclear medicine HIDA scan can be used for confirmation. ACT 112: Negative or not required by law. Electronically signed by: Andre Xie M.D. 01/15/2023 6:25 PM Code Status & VTE Plan Code Status Full code VTE Prophylaxis Plan VTE Prophylaxis will be ordered: Yes Supervising Physician Co-Signing Physician Notes Patient seen and examined, chart reviewed, case discussed with YAW Morgan and I agree with the assessment and plan as above. In brief, patient is a 77yo female with history of HTN presenting with abdominal pain. Patient had a screening colonoscopy performed on 01/08/[address] Trejo. Noted to be a somewhat difficult exam due to immobility of the colon. Patient found to have a 6mm polyp in the ascending colon which was removed with a cold snare. Also with non-bleeding internal hemorrhoids. Biopsy revealed tubular adenoma. On exam patient is afebrile, HD stable with some hypertension, NAD Skin - intact, no rash HEENT - MMM, Neck supple Heart - +S1/S2, regular, no m/r/g Lungs - CTA Abd - soft, tender to palpation without rebound/guarding/peritonitis Ext - warm ,well perfused Labs and images reviewed Gallbladder findings noted as above Assessment/Plan Diffuse abdominal pain following colonoscopy on 01/08/23, distention gas and episodes of diarrhea. CT results as above with ileocecitis, gallstones. Uncertain if patient's pain at present is related to her gallstones vs post- polypectomy vs normal post-colonoscopy discomfort/bloating. She is afebrile, HD stable and non-toxic in appearance -Admit to medical -Check HIDA scan -Continue antibiotics - Ceftriaxone and Flagyl -Pain control and anti-emetics as needed -General Surgery consultation appreciated -Remainder as above PG Care Time/CCT Total # of Minutes Spent Total Time Spent with Patient: Total time spent is greater than 50% in coordination of care (as documented) at patient's floor/unit and/or counseling patient: Coding [place] [address] INT INP/OBS CARE 2/55MIN Patient Type Established Medical Decision Making Moderate Complexity Diagnoses Abdominal pain R10.9 Cholelithiasis K80.20 Regional ileocolitis K50.80 HTN (hypertension) I10 Hypothyroidism E03.9
--- NOTE | 2023-01-15 21:00 | Surgery Consultation ---
Date of Consultation January 15, 2023 Assessment & Plan (1) Abdominal pain: I discussed with the treating emergency room physician the patient is being admitted on the hospitalist service. From a surgical perspective we recommend the following: Analgesics to be provided Antiemetics to be provided Would recommend implementing n.p.o. status for the present time Intravenous fluids to be provided for hydration The cause of patient's abdominal pain is not clearly been ascertained. The patient appears to have inflammation of the ileum/cecum area of her large and small bowel. This may be related to her recent colonoscopy she has had a polyp removed in the vicinity of this area. The patient is noted to have concerns for possible cholecystitis but this has not been definitively ascertained. I therefore recommend obtaining a HIDA scanthe primary service has noted that they will obtain the study Serial labs should be followed Patient has received antibiotics in form of Rocephin. Would recommend continuing antibiotics until the cause of her abdominal pain has been definitively ascertained Additional recommendations be forthcoming based on her clinical course as it unfolds Supervising Physician Co-Signing Physician Notes pnt d/w michelle ramsay, labs and imaging reviewed, agree with above. CT with findings of ileocecitis, dilated appendix, and distended gallbladder. US with stones and tenderness. possible cholecystitis though seems more like ileocecitis. admit to medicine, HIDA scan, abx. Possible cholecystectomy. History of Present Illness Reason for Consultation: Cholelithiasis History of Present Illness This is a 77-year-old female who presented to the emergency department secondary to some nonspecific abdominal pain. Patient reports that approximately 1 week ago she had a colonoscopy performed by Dr. Raj Trejo of [facility]. She notes that this was a routine colonoscopy. Since her colonoscopy she has had some nonspecific complaints. The day following her procedure she noted that her abdomen felt sore with bloating and gassy feeling along with a poor appetite. Approximate 48 hours after procedure she had felt feverish but admits she did not take her temperature and she did have some chills. She was able to have a bowel movement approximately 3 days after procedure but notes it was smaller than usual. Yesterday the patient noted that she had some nonbloody or nonmelanotic diarrhea and she continued to have poor oral intake. Reported the emergency department today as her symptoms are ongoing and she is not getting better. I did asked the patient if she has had any nonspecific abdominal complaints prior to her colonoscopy which she denies. She specifically notes that she did not have any postprandial pain in the past several months or weeks. Patient does note that she has had prior abdominal surgeries in the form of a hysterectomy Since arrival to hospital patient has had labs and imaging which I independent reviewed. Patient had a CT scan of the abdomen pelvis that showed findings consistent with a nonspecific inflammation of the ileocecal region of her small bowel/large bowel. There is no definite free intraperitoneal air noted. There are findings concerning for an ileus as there is some mildly distended loops of small bowel. Cholelithiasis was noted. With a mildly thickened gallbladder wall and some pericholecystic infiltration. A gallbladder ultrasound was also performed that showed patient had a gallbladder filled with multiple gallstones. There is mild gallbladder wall thickening measuring up to 3.2 mm. This was concerning for developing acute cholecystitis. CBC reveals white blood cell count was 4.2. Hemoglobin, hematocrit, platelet count were normal. Chemistry profile showed sodium, potassium, BUN, creatinine were normal. There is no elevation of patient's bilirubin, transaminases, alkaline phosphatase, or lipase. Urinalysis was not taken of infection. Is a very is colonoscopy report and he did do a 6 mm polypectomy in the ascending colon. Per reports was noted this is a challenging procedure the patient was noted to have a nonmobile colon. At the time of my interview the patient was resting comfortably in bed and she was in no distress. Past medical history the patient is treated for hypothyroid retention, and osteoporosis Concerning past surgical history she has had a hysterectomy Concerning allergies she says that she is allergic to Fosamax Concerning social history she is a remote smoker Concerning family history she has a family history of colon cancer Allergies Allergy/AdvReac Type Severity Reaction Status Date / Time alendronate sodium Allergy Unknown Verified 01/15/23 20:18 [From Fosamax] Home Medications Medication Instructions Recorded Confirmed Type amlodipine 5 mg tablet 5 mg PO QAM 01/15/23 01/15/23 History levothyroxine 75 mcg tablet 75 mcg PO QAM 01/15/23 01/15/23 History risedronate 150 mg tablet 150 mg PO .MONTHLY 01/15/23 01/15/23 History Patient History Social History Smoking Status: Never smoker Preferred Language: Lithuanian Feels Safe at Home: Yes Review of Systems Constitutional: + fever (Subjective) Ear, Nose, Mouth, Throat: no hearing loss Respiratory: no cough and no dyspnea Cardiovascular: no chest pain Gastrointestinal: as per Subjective / HPI Genitourinary: no dysuria Musculoskeletal: no back pain Integumentary: no rash Neurologic: no localized weakness Physical Exam Constitutional: WD/WN, vitals as above Eyes: no conjunctival abnormality ENMT: Ears: no hearing impairment and no external ear abnormality Mouth: no oropharynx abnormality Neck: trachea midline Respiratory: normal respiratory effort, lungs clear to auscultation Cardiovascular: Rate/Rhythm: regular rate and regular rhythm Vessels: dorsalis pedis pulses present and radial pulses present Gastrointestinal (Abdomen): Abdomen is mildly distended but overall soft and nonrigid. Bowel sounds are present. Patient had some generalized palpation through her abdomen but this did not appear to be worst in the right lower quadrant. There is no rebound tenderness or guarding. At the time of my exam Simmons sign was negative. Skin: No calf tenderness Neurologic: moves all extremities Psychiatric: A+Ox3, euthymic affect Results & Data Vital Signs (Past 12 Hours) Vital Signs Temp Pulse Pulse Resp BP BP Pulse Ox 01/15/23 17:00 66 16 158/85 H 99 01/15/23 16:00 62 18 176/83 H 97 01/15/23 12:27 36.2 C L 68 18 166/86 H 98 O2 Del Method 01/15/23 17:00 Room Air 01/15/23 16:00 Room Air 01/15/23 12:27 Room Air PG Care Time/CCT Total # of Minutes Spent Total Time Spent with Patient: Total time spent is greater than 50% in coordination of care (as documented) at patient's floor/unit and/or counseling patient: Coding Level of Care Code 33411 OFFICE CONSULT LVL 5/55M Diagnoses Abdominal pain R10.9
[2023-01-15] MEDS ORDERED: metroNIDAZOLE 500 MG/100 ML BAG IV STA (21:10)
[2023-01-15] MEDS ORDERED: ACETAMINOPHEN 1,000 MG/100 ML VIAL IV STA (21:11)
[2023-01-15] MEDS ORDERED: MoRPHine SULFATE 2 MG/ML CARP IV PRN (21:11)
[2023-01-15] MEDS: PLASMA-LYTE A 1,000 ML IV SCH (21:40)
[2023-01-15] MEDS ORDERED: Nursing to Pharmacy Communication SCH (23:45)
[2023-01-16] MEDS: LEVOTHYROXINE SODIUM 75 MCG TABLET PO SCH (05:17)
[2023-01-16 07:57] LABS: Basophils # (auto) 0.05 K/uL (0.00-0.20); Basophils % (auto) 1.3 %; Eosinophils # (auto) 0.13 K/uL (0.00-0.50); Eosinophils % (auto) 3.3 %; Hematocrit (blood only) 37.4 % (37.0-47.0); Hemoglobin 11.9 g/dl (12.0-16.0); Immature Granulocytes # (auto) 0.03 K/uL (0.01-0.20); Immature Granulocytes % (auto) 0.8 %; Lymphocytes # (auto) 1.19 K/uL (1.20-3.40); Lymphocytes % (auto) 30.6 %; Mean Corpuscular Hemoglobin 28.3 pg (25.0-34.0); Mean Corpuscular Hgb Conc 31.8 g/dL (32.0-36.0); Mean Platelet Volume 12.4 fL (9.4-12.4); Monocytes # (auto) 0.44 K/uL (0.11-0.59); Monocytes % (auto) 11.3 %; Neutrophils # (auto) 2.05 K/uL (1.40-6.50); Neutrophils % (auto) 52.7 %; Platelet Count 240 K/uL (130-400); RDW Coefficient of Variation 12.9 % (11.5-14.5); RDW Standard Deviation 42.1 fL (36.4-46.3); White Blood Count 3.89 K/ul (4.8-10.8)
[2023-01-16] MEDS: PLASMA-LYTE A 1,000 ML IV SCH (08:01)
[2023-01-16] MEDS: metroNIDAZOLE 500 MG/100 ML BAG IV SCH ×3 (08:02→23:17)
[2023-01-16 08:13] LABS: Albumin Globulin Ratio 1.2 (0.9-2); Albumin Level 3.7 gm/dl (3.4-5.0); BUN Creatinine Ratio 14.5 (10-20); Bilirubin,Total 0.4 mg/dl (0.2-1.0); Calcium 8.6 mg/dl (8.6-10.3); Creatinine Clr Calc Pharmacy 44.9 ml/min; Est GFR (African American) 78.8 ml/min; Magnesium 2.2 mg/dl (1.7-2.4); Total Protein 6.7 gm/dl (6.0-8.3)
--- NOTE | 2023-01-16 13:25 | Surgery Progress Note ---
Date of Service January 16, 2023 Assessment & Plan (1) Regional ileocolitis: Plan: 77-year-old female with what appears to be ileocolitis, gallbladder showed stones and possible cholecystitis. HIDA scan is pending Await results of HIDA scan If positive, then possible cholecystectomy tomorrow If negative, then would like her to recover from her enteritis and follow-up for discussion of cholecystectomy as an outpatient (2) Cholelithiasis: Admission and Anticipated Discharge Date Admission Date: January 15, 2023 Subjective 77-year-old female 1 week status post colonoscopy and polypectomy, admitted with ileus and colitis and possible cholecystitis. HIDA scan pending today, she is feeling much better Physical Exam Constitutional: WD/WN, vitals as above Gastrointestinal (Abdomen): Percussion/Palpation: + abdomen tender (Tender in right lower quadrant, no right upper quadrant tenderness) and abdomen soft; no guarding and abdomen not rigid Results & Data Vital Signs (Past 12 Hours) Vital Signs Temp Pulse BP Pulse Ox O2 Del Method 01/16/23 10:59 36.7 C 63 131/70 97 Room Air 01/16/23 08:46 36.7 C 70 135/76 96 Room Air Laboratory Results Laboratory Results - last 24 hr 01/15/23 01/15/23 01/16/23 12:40 15:46 07:12 WBC 4.24 L 3.89 L RBC 4.37 4.20 Hgb 12.7 11.9 L Hct 39.0 37.4 MCV 89.2 89.0 MCH 29.1 28.3 MCHC 32.6 31.8 L RDW Std Deviation 42.5 42.1 RDW Coeff of Tho 13.0 12.9 Plt Count 260 240 MPV 12.5 H 12.4 Immature Gran % (Auto) 0.7 0.8 Neut % (Auto) 61.6 52.7 Lymph % (Auto) 27.1 30.6 Pitt % (Auto) 7.1 11.3 Eos % (Auto) 2.6 3.3 Baso % (Auto) 0.9 1.3 Neut # (Auto) 2.61 2.05 Lymph # (Auto) 1.15 L 1.19 L Pitt # (Auto) 0.30 0.44 Eos # (Auto) 0.11 0.13 Baso # (Auto) 0.04 0.05 Immature Gran # (Auto) 0.03 0.03 Sodium 140 142 Potassium 3.8 4.0 Chloride 105 106 Carbon Dioxide 28 28 Anion Gap 7 8 BUN 16 12 Creatinine 0.86 0.83 Est Cr Clr Drug Dosing 39.9 44.9 Est GFR ( Amer) 70.4 78.8 Est GFR (Non-Af Amer) 60.7 68.0 BUN/Creatinine Ratio 18.6 14.5 Glucose 105 H 87 Calcium 9.5 8.6 Magnesium 2.2 Total Bilirubin 0.4 0.4 AST 19 21 ALT 15 16 Alkaline Phosphatase 58 52 Total Protein 7.5 6.7 Albumin 4.2 3.7 Globulin 3.3 3.0 Albumin/Globulin Ratio 1.3 1.2 Lipase 29 Urine Color Yellow Urine Appearance Clear Urine pH 6.5 Ur Specific [place] 1.011 Urine Protein Negative Urine Glucose (UA) Negative Urine Ketones Trace H Urine Blood Negative Urine Nitrite Negative Urine Bilirubin Negative Urine Urobilinogen Negative Ur Leukocyte Esterase Negative PG Care Time/CCT Total # of Minutes Spent Total Time Spent with Patient: Total time spent is greater than 50% in coordination of care (as documented) at patient's floor/unit and/or counseling patient: Coding Level of Care Code 94226 SUB INP/OBS CARE MIN Diagnoses Regional ileocolitis K50.80 Cholelithiasis K80.20
[2023-01-16] MEDS ORDERED: SINCALIDE 1.2 MCG in 0.9 % SODIUM CHLORIDE 100 ML IV ONE (14:15)
--- NOTE | 2023-01-16 14:51 | Hospitalist Progress Note ---
Date of Service January 16, 2023 Assessment & Plan (1) Abdominal pain: Plan: CT consistent with ileocecitis. This is most likely related to her recent polypectomy She is currently on IV Rocephin and Flagyl Continue n.p.o. status Continue conservative management Continue IV fluids Surgery on board (2) Cholelithiasis: Plan: -General surgery is following -Follow HIDA scan results -Continue Ceftriaxone/Flagyl and IV fluids -Continue NPO status at this time (3) Regional ileocolitis: Plan: -Continue IV fluids and antibiotics (4) HTN (hypertension): Plan: -Stable -Will hold amlodipine for now to prevent hypotension (5) Hypothyroidism: Plan: -Continue levothyroxine Plan Admission and Anticipated Discharge Date Admission Date: January 15, 2023 Subjective patient is feeling better overall. But still has abdominal pain mostly in the lower abdomen. Review of Systems Review of Systems: All systems reviewed & are unremarkable except as noted in Subjective Physical Exam Physical Exam: General: Awake, conversant Heart: S1, S2/regular rate and rhythm, no murmur rubs or gallops Lungs: Clear to auscultation bilaterally. Normal effort Abdomen: Soft/nondistended. mild tenderness to palpation in lower abdomen with no rebound, rigidity or guarding.No hepatosplenomegaly Extremities: No clubbing/cyanosis. No edema Behavior: Appropriate, cooperative Results & Data Results & Data Vital Signs (Past 12 Hours) Vital Signs Temp Pulse BP Pulse Ox O2 Del Method 01/16/23 10:59 36.7 C 63 131/70 97 Room Air 01/16/23 08:46 36.7 C 70 135/76 96 Room Air PG Care Time/CCT Total # of Minutes Spent Total Time Spent with Patient: Total time spent is greater than 50% in coordination of care (as documented) at patient's floor/unit and/or counseling patient: Coding Level of Care Code 42424 SUB INP/OBS CARE 2/35MIN Diagnoses Abdominal pain R10.9 Cholelithiasis K80.20 Regional ileocolitis K50.80 HTN (hypertension) I10 Hypothyroidism E03.9
--- NOTE | 2023-01-16 16:43 | Nuclear Medicine Report ---
NUCLEAR MEDICINE HEPATOBILIARY SCAN WITH EJECTION FRACTION HISTORY: Multiple gallstones, monitor for cholecystitis COMPARISON: None. TECHNIQUE: Immediately following the intravenous administration of 5.2 mCi Tc-99m Choletec, static an terior abdominal imaging pre/post 1.2 mcg of Kinevac was performed. FINDINGS: Uniform hepatic tracer accumulation is shown. Prompt intrahepatic biliary excretion is seen. The gall bladder, common bile duct, and small bowel are all visualized by 60 minutes. This appearance represen ts the normal sequence of biliary excretion. The gall bladder ejection fraction following administration of Kinevac was 43% (normal >35%). IMPRESSION: 1. No evidence for cystic duct obstruction. 2. Gallbladder ejection fraction calculated to be 43 %. ACT 112: Negative or not required by law. Electronically signed by: Andre Xie M.D. 01/16/2023 4:42 PM
[2023-01-16] MEDS: cefTRIAXone SODIUM 2,000 MG in DEXTROSE 5 % MINI-B 50 ML IV SCH (21:23)
[2023-01-17] MEDS: LEVOTHYROXINE SODIUM 75 MCG TABLET PO SCH (05:41)
[2023-01-17] MEDS: ACETAMINOPHEN 1,000 MG/100 ML VIAL IV PRN (05:48)
[2023-01-17 08:26] LABS: Basophils # (auto) 0.04 K/uL (0.00-0.20); Basophils % (auto) 0.6 %; Eosinophils # (auto) 0.08 K/uL (0.00-0.50); Eosinophils % (auto) 1.2 %; Hematocrit (blood only) 40.4 % (37.0-47.0); Hemoglobin 13.1 g/dl (12.0-16.0); Immature Granulocytes # (auto) 0.05 K/uL (0.01-0.20); Immature Granulocytes % (auto) 0.7 %; Lymphocytes # (auto) 1.01 K/uL (1.20-3.40); Lymphocytes % (auto) 15.1 %; Mean Corpuscular Hemoglobin 28.7 pg (25.0-34.0); Mean Corpuscular Hgb Conc 32.4 g/dL (32.0-36.0); Mean Corpuscular Volume 88.6 fL (80.0-100.0); Mean Platelet Volume 12.5 fL (9.4-12.4); Monocytes # (auto) 0.52 K/uL (0.11-0.59); Monocytes % (auto) 7.8 %; Neutrophils # (auto) 4.99 K/uL (1.40-6.50); Neutrophils % (auto) 74.6 %; Platelet Count 265 K/uL (130-400); RDW Coefficient of Variation 12.9 % (11.5-14.5); Red Blood Count 4.56 M/uL (4.20-5.40); White Blood Count 6.69 K/ul (4.8-10.8)
[2023-01-17 08:31] LABS: Albumin Globulin Ratio 1.2 (0.9-2); Albumin Level 4.1 gm/dl (3.4-5.0); BUN Creatinine Ratio 17.6 (10-20); Bilirubin,Total 0.5 mg/dl (0.2-1.0); Calcium 8.8 mg/dl (8.6-10.3); Creatinine Clr Calc Pharmacy 50.4 ml/min; Est GFR (African American) 90.6 ml/min; Est GFR (Non-African American) 78.1 ml/min; Globulin 3.3 gm/dl (2.5-4.0); Magnesium 2.2 mg/dl (1.7-2.4); Potassium 3.6 mmol/L (3.5-5.1); Total Protein 7.4 gm/dl (6.0-8.3)
[2023-01-17] MEDS: metroNIDAZOLE 500 MG/100 ML BAG IV SCH ×3 (08:39→23:21)
--- NOTE | 2023-01-17 12:00 | Surgery Progress Note ---
Date of Service January 17, 2023 Assessment & Plan (1) Regional ileocolitis: Plan: 77-year-old female with what appears to be ileocolitis, gallbladder showed stones and possible cholecystitis. HIDA scan negative No indication for acute cholecystectomy at this time Diet as tolerated, may be discharged home if tolerated Low-fat diet She can follow-up with an outpatient, we will plan for possible cholecystectomy if she desires once her other symptoms resolve Dr. Singh covering over weekend, surgery will follow peripherally, call with questions or concerns (2) Cholelithiasis: Admission and Anticipated Discharge Date Admission Date: January 15, 2023 Subjective Admitted with abdominal pain and CT findings of ileus otitis along with possible cholecystitis. HIDA scan yesterday with no evidence of cholecystitis or biliary dyskinesia. She did have some nausea with breakfast this morning. Physical Exam Constitutional: WD/WN, vitals as above Gastrointestinal (Abdomen): Percussion/Palpation: + abdomen tender (Improving tenderness in right lower quadrant, no RUQ tenderness) and abdomen soft; no guarding and abdomen not rigid Results & Data Vital Signs (Past 12 Hours) Vital Signs Temp Pulse Resp BP Pulse Ox O2 Del Method 01/17/23 07:12 36.7 C 66 16 119/67 97 Room Air Diagnostic Findings NUCLEAR MEDICINE HEPATOBILIARY SCAN WITH EJECTION FRACTION HISTORY: Multiple gallstones, monitor for cholecystitis COMPARISON: None. TECHNIQUE: Immediately following the intravenous administration of 5.2 mCi Tc- 99m Choletec, static anterior abdominal imaging pre/post 1.2 mcg of Kinevac was performed. FINDINGS: Uniform hepatic tracer accumulation is shown. Prompt intrahepatic biliary excretion is seen. The gallbladder, common bile duct, and small bowel are all visualized by 60 minutes. This appearance represents the normal sequence of biliary excretion. The gall bladder ejection fraction following administration of Kinevac was 43% (normal >35%). IMPRESSION: 1. No evidence for cystic duct obstruction. 2. Gallbladder ejection fraction calculated to be 43 %. PG Care Time/CCT Total # of Minutes Spent Total Time Spent with Patient: Total time spent is greater than 50% in coordination of care (as documented) at patient's floor/unit and/or counseling patient: Coding Level of Care Code 00314 SUB INP/OBS CARE 2/35MIN Diagnoses Regional ileocolitis K50.80 Cholelithiasis K80.20
--- NOTE | 2023-01-17 15:51 | Hospitalist Progress Note ---
Date of Service January 17, 2023 Assessment & Plan (1) Cholelithiasis: Plan: -General surgery is following - HIDA scan results fairly unremarkable Follow-up with general surgery outpatient to consider an outpatient cholecystectomy -Continue Ceftriaxone/Flagyl and IV fluids - advance diet (2) Regional ileocolitis: Plan: -Continue IV fluids and antibiotics Advance diet slowly (3) HTN (hypertension): Plan: -Stable -Will hold amlodipine for now to prevent hypotension (4) Hypothyroidism: Plan: -Continue levothyroxine Plan likely discharge tomorrow Admission and Anticipated Discharge Date Admission Date: January 15, 2023 Subjective patient feels better. She has been on a clear liquid diet. Wishes to advance her diet today. She is hungry. Her belly pain is improved Review of Systems Review of Systems: All systems reviewed & are unremarkable except as noted in Subjective Physical Exam Physical Exam: General: Awake, conversant Heart: S1, S2/regular rate and rhythm, no murmur rubs or gallops Lungs: Clear to auscultation bilaterally. Normal effort Abdomen: Soft/nondistended. mild tenderness to palpation in lower abdomen with no rebound, rigidity or guarding.No hepatosplenomegaly Extremities: No clubbing/cyanosis. No edema Behavior: Appropriate, cooperative Results & Data Results & Data Vital Signs (Past 12 Hours) Vital Signs Temp Pulse Resp BP Pulse Ox O2 Del Method 01/17/23 14:46 36.6 C 69 16 111/62 98 Room Air 01/17/23 07:12 36.7 C 66 16 119/67 97 Room Air PG Care Time/CCT Total # of Minutes Spent Total Time Spent with Patient: Total time spent is greater than 50% in coordination of care (as documented) at patient's floor/unit and/or counseling patient: Coding Level of Care Code 12513 SUB INP/OBS CARE 2/35MIN Diagnoses Cholelithiasis K80.20 Regional ileocolitis K50.80 HTN (hypertension) I10 Hypothyroidism E03.9
[2023-01-17] MEDS: cefTRIAXone SODIUM 2,000 MG in DEXTROSE 5 % MINI-B 50 ML IV SCH (19:55)
[2023-01-18] MEDS: LEVOTHYROXINE SODIUM 75 MCG TABLET PO SCH (06:03)
[2023-01-18] MEDS: ACETAMINOPHEN 1,000 MG/100 ML VIAL IV PRN (07:41)
[2023-01-18 07:54] LABS: Albumin Globulin Ratio 1.2 (0.9-2); Albumin Level 4.1 gm/dl (3.4-5.0); BUN Creatinine Ratio 19.5 (10-20); Bilirubin,Total 0.5 mg/dl (0.2-1.0); Calcium 8.9 mg/dl (8.6-10.3); Creatinine Clr Calc Pharmacy 45.4 ml/min; Globulin 3.3 gm/dl (2.5-4.0); Magnesium 2.1 mg/dl (1.7-2.4); Potassium 3.5 mmol/L (3.5-5.1); Total Protein 7.4 gm/dl (6.0-8.3)
[2023-01-18 07:55] LABS: Hematocrit (blood only) 38.4 % (37.0-47.0); Hemoglobin 12.6 g/dl (12.0-16.0); Mean Corpuscular Hemoglobin 28.4 pg (25.0-34.0); Mean Corpuscular Hgb Conc 32.8 g/dL (32.0-36.0); Mean Corpuscular Volume 86.7 fL (80.0-100.0); Mean Platelet Volume 13.5 fL (9.4-12.4); Platelet Count 207 K/uL (130-400); RDW Standard Deviation 41.3 fL (36.4-46.3); Red Blood Count 4.43 M/uL (4.20-5.40)
[2023-01-18 07:57] LABS: Basophils # (auto) 0.04 K/uL (0.00-0.20); Basophils % (auto) 0.7 %; Eosinophils # (auto) 0.09 K/uL (0.00-0.50); Eosinophils % (auto) 1.6 %; Immature Granulocytes # (auto) 0.06 K/uL (0.01-0.20); Immature Granulocytes % (auto) 1.1 %; Lymphocytes % (auto) 19.6 %; Monocytes # (auto) 0.58 K/uL (0.11-0.59); Monocytes % (auto) 10.4 %; Neutrophils # (auto) 3.73 K/uL (1.40-6.50); Neutrophils % (auto) 66.6 %; Platelet Estimate Normal (Normal)
[2023-01-18] MEDS: metroNIDAZOLE 500 MG/100 ML BAG IV SCH (08:07)
--- NOTE | 2023-01-18 10:25 | Discharge Summary ---
Date of Service January 18, 2023 Admission HPI Per Admitting Provider Lola is a 77 year old female with a PMH significant for HTN, hypothyroidism, and osteoporosis who presented to the [facility] on 01/15 at the recommendation of GI for abdominal pain, distention, and diarrhea. Per the ED, the patient had a colonoscopy approximately one week ago. GI recommended the patient go to the ED for further evaluation. She remained stable while in the ED. Labs including CBC, CMP, and UA were unremarkable. CT of the abd/pelvis with IV con was initially red as "1. Findings a consistent with a nonspecific ileocecum right as as above. This is likely an infectious or inflammatory basis, and clinical correlation will be essential. 2. There is associated interloop fluid, surrounding inflammation, and a small volume of pelvic ascites. No definite peritoneal free air is seen. 3. The mesenteric vessels appear widely patent. 4. The upstream small bowel loops are mildly distended and fluid-filled suggestive of ileus. There is no evidence of high-grade obstruction. 5. Cholelithiasis with findings suspicious for acute cholecystitis. Clinical and laboratory correlation will be required. A right upper quadrant ultrasound could be considered for further assessment. 6. The bladder wall appears diffusely thickened. Correlate with clinical findings and urinalysis. An addendum was later added stating "As an additional impression point, the appendix is dilated and fluid-filled. There is no significant stranding inflammation, and this is likely related to the ileocecitis. Acute appendicitis is considered much less likely. Clinical correlation will be essential.". Gallbladder US was read as "The gallbladder is completely filled with stones. There is mild gallbladder wall thickening measuring up to 3.2 mm. The technologist reported patient tenderness while scanning over the gallbladder suggestive of a positive sonographic Simmons sign. Therefore, these findings are concerning for a developing acute cholecystitis. Surgical consultation and/or nuclear medicine HIDA scan can be used for con firmation.". The ED contacted General Surgery who will see the patient but recommended medicine admission with Surgery following. Prior to admission the patient was given a dose of Ceftriaxone. At the time of the exam the patient was sitting in bed in no acute distress. She states that she had a routine colonoscopy with [facility] on 01/08. Per review of the report, Per review of the procedure report, A 6 mm polyp was found in the ascending colon, it was described as sessile. The procedure was described as unusually difficult due to restricted mobility of the colon. She states that she started to develop lower and right abdominal pain and increased abdominal distention/gas on 01/09. Her symptoms persisted despite using Gas-X, she did not have a BM until 01/10. She states that she had multiple episodes of loose, non- bloody stool over the weekend with continued abdominal discomfort. Because of this she has had very poor oral intake over the past 72 hours. She called her PCP and the GI clinic who recommended coming to the ED for further evaluation. She states that her symptoms are under control while at rest with exacerbation whenever she increased intraabdominal pressure. She denies recent fever, chest pain, SOB, hematemesis, dysuria, hematuria, melena, LE swelling, and recent trauma. She is a full code and wishes for her daughter to make medical decisions for her if she cannot make them herself. An addendum was added to the CT read: As an additional impression point, the appendix is dilated and fluid-filled. There is no significant stranding inflamm ation, and this is likely related to the ileocecitis. Acute appendicitis is considered much less likely. Clinical correlation will be essential. Please refer to Dr. Moore's attestation for any changes to the treatment plan Admission Exam Per Admitting Provider General: In no acute distress, stated age, well-nourished, good hygiene, non- toxic appearing HEENT: Normocephalic, atraumatic, no scleral icterus, pupils around round, symmetrical, and reactive to light, moist mucus membranes, trachea midline, no thyromegaly Chest/Pulm: No respiratory distress, symmetrical chest expansion, clear breath sounds throughout Cardiac: RRR, no murmurs noted Abdomen: Negative for ascites and bruising, hypoactive bowel sounds, soft, tender to palpation in the BL lower abdominal rodriguez, as-well-as the RUQ with deep palpation, negative rebound tenderness Musculoskeletal: Symmetrical and without signs of acute trauma, upper and lower extremities with full ROM, no atrophy, spasticity, or flaccidity Extremities: Radial, dorsalis pedis, and posterior tibial pulses are intact and symmetrical, no edema noted in the BL LE's Skin: Warm, dry, no rashes , lesions, or scars noted Neuro: Alert and oriented to person, place, month, year, and president, no focal defects, no tremors noted Psych: No acute distress, calm and cooperative during the exam Principal Diagnosis Ileo-cecitis likely as a complication of recent polypectomy Discharge Exam General: Awake, conversant Heart: S1, S2/regular rate and rhythm, no murmur rubs or gallops Lungs: Clear to auscultation bilaterally. Normal effort Abdomen: Soft/nondistended. mild tenderness to palpation in lower abdomen with no rebound, rigidity or guarding.No hepatosplenomegaly Extremities: No clubbing/cyanosis. No edema Behavior: Appropriate, cooperative Discharge Data Allergies Allergy/AdvReac Type Severity Reaction Status Date / Time alendronate sodium Allergy Unknown TACHYCARDIA Verified 01/16/23 06:59 Consultations 01/15/23 19:43 ED Decision to Admit Stat 01/15/23 21:43 Consult General Surgery Routine Ordered Studies 01/15/23 15:11 CT abd pelvis IV con only Stat 01/15/23 17:16 US gallbladder Stat Hospital Course (1) Gallstones: (2) Abdominal pain: Plan 1) Cholelithiasis: Plan: -Gallbladder ultrasound showed gallstones with mild gallbladder wall thickening - HIDA scan results fairly unremarkable Follow-up with general surgery outpatient to consider an outpatient cholecystectomy -Patient was treated with IV ceftriaxone/Flagyl during the hospital stay We will discharge on Keflex and Flagyl Tolerating diet (2) Regional ileocolitis: Plan: This was most likely a complication recent colonoscopy with polypectomy Patient was treated with IV antibiotics and was treated conservatively with bowel rest and IV fluids Slowly improved Being discharged on p.o. Keflex and Flagyl to complete the course Tolerating diet Abdominal pain has improved (3) HTN (hypertension): Plan: -Stable Resume (4) Hypothyroidism: Plan: -Continue levothyroxine Discharge today Total Time Total Time Spent Total Time Spent (In Minutes): 35 Discharge Plan Discharge Items Patient Disposition: Home - Self-Care Reason For Visit: CHOLECYSTITIS, ILEOCECITIS Discharge Diagnosis: Ileo-cecitis likely as a complication of recent polypectomy Activity: Resume your previous activity Non-emergency contact: Primary Care Provider Call non-emergency contact if: you have any medication questions and your symptoms worsen Follow-up/Referrals: Zach Hankins DO [Primary Care Provider] - 01/27/23 3:00 pm (APPOINTMENT WITH [facility]) Diet: Low Fat Addtl Attending Provider Instructions: Advised to follow-up with PCP in 1 week Advised to talk to PCP about referral to general surgery to consider an outpatient laparoscopic cholecystectomy Pending Studies at Discharge: No Stand-Alone Forms: My [facility] Medications and DC Order Prescriptions: New metronidazole 500 mg tablet 500 mg PO Q8H 4 Days Qty: 12 0RF cephalexin 500 mg capsule 500 mg PO BID 4 Days Qty: 8 0RF Continued levothyroxine 75 mcg tablet 75 mcg PO QAM cholecalciferol (vitamin D3) 2,000 unit tablet 2,000 units PO QDL amlodipine 5 mg tablet 5 mg PO QAM risedronate 150 mg tablet 150 mg PO .MONTHLY Discontinued risedronate [Actonel] 150 mg tablet 150 mg PO MONTHLY Qty: 3 3RF amlodipine 5 mg tablet 5 mg PO QDL levothyroxine 75 mcg tablet 75 mcg PO QAM Discharge Orders: Discharge Order (Routine); Ordered 01/18/23 Ordered By: Marlon Pratt Admission Data Admit Date/Time: 01/15/23 19:48 Attending Provider: Marlon Pratt Admit Provider: Diane Moore Primary Care Provider: Zach Hankins Other Providers: Diane Moore; Matty Cheng. Other Interventions: Discharge Summary Assessment (RN) Last Done: 01/18/23 10:30 Coding Level of Care Code 10561 INP/OBS DISCH >30 MIN Diagnoses Gallstones K80.20 Abdominal pain R10.9 Abdominal location: unspecified location
== END 2023-01-18 12:16 | disposition home or self-care (01) | DRG 445 ==
LOC: ED 12:12 → EDBD 12:12 → MERGE 19:48 → 3W 19:48 → SUATTDRO 19:48 → 3W 21:55